=== PATIENT | female | born 1945 | race African-American/Black ===

== ENCOUNTER 2017-11-29 19:25 | Emergency (ER) | END 2017-11-30 03:07 | disposition home or self-care (01) ==

== ENCOUNTER 2018-01-08 23:02 | Emergency (ER) | END 2018-01-09 08:59 | disposition home or self-care (01) ==

== ENCOUNTER 2019-01-24 22:51 | Inpatient (IN) | payer OTHER ==
[~2019-01-24] VITALS: Ht 317.5 cm; Wt 63.8 kg
[~2019-01-24 22:51] MED LIST: ASPI-817 PO; DOCU-144 PO; HYDR-4011 PO; NAPR-688 PO; NAPR-985 PO; ONDA4TAB11 PO; ONDA4TAB8 PO; POLY17PO6 PO; PYRI250T7 PO; VITAMIN B12 SQ
--- NOTE | 2019-01-24 23:29 | ERD ---
ER Documentation Chief Complaint Chief Complaint fainted HPI The patient is a 73-year-old female, presenting to the ER because she felt dizzy and fainted today around 3 PM, fell on the curb side and landed on her right side of the abdomen. She denies any head injury, it was a witnessed by her caregiver, denies facial pain, neck pain, chest pain, dyspnea, abdominal pain, vomiting, dizzy, diarrhea, denies tongue bite, fecal/urinary incontinence. She smokes and drinks socially Past medical history: History of colon cancer Past surgical History: Colostomy, partial colectomy, IVC ROS All systems reviewed and are negative except as per history of present illness. Medications Home Meds Reported Medications [Vitamin B12] No Conflict Check, SQ Q30D 11/29/17 Pyridoxine Hcl* (Vitamin B-6*) Unknown Strength Tablet, 1 TAB PO DAILY, TAB 11/29/17 Aspirin* (Aspirin* EC) 81 Mg Tablet.dr, 81 MG PO NEEDED, TAB 11/29/17 Discontinued Scripts Ondansetron Hcl* (Zofran*) 4 Mg Tablet, 4 MG PO Q8H PRN for NAUSEA AND/OR VOMITING, #30 TAB Prov:CARLA OLIVEIRA MD 01/09/18 Naproxen* (Naprosyn*) 500 Mg Tablet, 500 MG PO BID PRN for PAIN AND/OR INFLAMMATION, #30 TAB Prov:CARLA OLIVEIRA MD 01/09/18 Docusate Sodium* (Colace*) 100 Mg Capsule, 100 MG PO BID, #30 CAP Prov:CARLA OLIVEIRA MD 01/09/18 Polyethylene Glycol* (Miralax*) 17 Gm Powd.pack, 17 GM PO DAILY, #7 Prov:CARLA OLIVEIRA MD 01/09/18 Ondansetron (Zofran Odt) 4 Mg Tab.rapdis, 4 MG PO Q6, #10 Prov:HELEN MONSON DO 11/30/17 Naproxen* (Naproxen*) 500 Mg Tablet, 500 MG PO BID PRN for PAIN, #20 TAB Prov:HELEN MONSON DO 11/30/17 Hydrocodone/Acetaminophen ([place] 5-325 Tablet) 1 Each Tablet, 1 EACH PO Q6 for PAIN, #14 TAB Prov:HELEN MONSON DO 11/30/17 Allergies Allergies: Coded Allergies: shellfish derived (Unverified Allergy, Severe, ANAPHLAXIS, 01/25/19) CAN'T HAVE GASTROGRAFIN FOR XRAYS OR SCANS Iodinated Contrast- Oral and IV Dye (Unverified Allergy, Unknown, 01/25/19) morphine (Unverified Allergy, Unknown, 01/25/19) PMhx/Soc History of Surgery: Yes (colostomy, vasculary stents, Implanted port, Mesh in the stomach.) Anesthesia Reaction: No Hx Neurological Disorder: No Hx Respiratory Disorders: No Hx Cardiac Disorders: No Hx Psychiatric Problems: No Hx Miscellaneous Medical Probl: Yes (Clotting (vascular stents placed)) Hx Alcohol Use: Yes (Socially) Hx Substance Use: No Hx Tobacco Use: Yes Physical Exam Vitals Vital Signs Date Temp Pulse Resp B/P (MAP) Pulse Ox O2 O2 Flow FiO2 Time Delivery Rate 01/25/19 70 15 110/72 100 Room Air 02:50 (85) 01/25/19 97.3 70 18 125/80 100 Room Air 00:50 (95) 01/24/19 97.3 83 16 121/59 100 23:00 (79) Physical Exam Const: No acute distress. Head: Atraumatic. Eyes: Normal Conjunctiva. ENT: Normal External Ears, Nose and Mouth. Neck: Full range of motion. No meningismus. Resp: Clear to auscultation bilaterally. Cardio: Regular rate and rhythm. Abd: Soft, non distended, normal bowel sounds, non tender. Skin: No petechiae or rashes. Back: No midline or flank tenderness. Ext: No cyanosis, or edema. Neur: Awake and alert. No focal deficit Psych: Normal Mood and Affect. Result Diagram: 01/27/19 0607 01/27/19 0608 Results 24 hrs Laboratory Tests Test 01/25/19 00:25 01/25/19 00:50 White Blood Count 7.2 10^3/ul Red Blood Count 3.66 10^6/ul Hemoglobin 11.3 g/dl Hematocrit 36.4 % Mean Corpuscular Volume 99.5 fl Mean Corpuscular Hemoglobin 30.9 pg Mean Corpuscular Hemoglobin Concent 31.0 g/dl Red Cell Distribution Width 11.8 % Platelet Count 277 10^3/UL Mean Platelet Volume 9.1 fl Immature Granulocytes % 0.100 % Neutrophils % 45.0 % Lymphocytes % 44.3 % Monocytes % 9.0 % Eosinophils % 1.2 % Basophils % 0.4 % Nucleated Red Blood Cells % 0.0 /100WBC Immature Granulocytes # 0.010 10^3/ul Neutrophils # 3.3 10^3/ul Lymphocytes # 3.2 10^3/ul Monocytes # 0.7 10^3/ul Eosinophils # 0.1 10^3/ul Basophils # 0.0 10^3/ul Nucleated Red Blood Cells # 0.0 10^3/ul Sodium Level 140 mmol/L Potassium Level 4.1 mmol/L Chloride Level 102 mmol/L Carbon Dioxide Level 29 mmol/L Anion Gap 9 Blood Urea Nitrogen 12 mg/dl Creatinine 0.88 mg/dl Est Glomerular Filtrat Rate mL/min mL/min Glucose Level 89 mg/dl Calcium Level 9.6 mg/dl Troponin I < 0.012 ng/ml Bedside Glucose 84 mg/dL Procedures/MDM EKG: Read by emergency physician Rate/Rhythm: Normal Sinus Rhythm 74 beats/min QRS, ST, T-waves: No ST elevation, no T inversion, KAROILNA Impression: Abnormal EKG [place] [address] Radiology Main Line: [phone] DIAGNOSTIC IMAGING REPORT Patient: GRACY FERREIRA : 1945 Age: 73 Sex: F MR #: [id number] DOS: 01/25/19 0006 Ordering MD: HOLLY ROWLAND MD Location: E/R Room/Bed: PROCEDURE: CT BRAIN WITHOUT CONTRAST CLINICAL INDICATION: 73-year-old female with syncope. TECHNIQUE: The study was performed utilizing [employer] VCT 64-slice CT scanner. Direct axial sections were obtained from the foramen magnum to the vertex without the use of intravenous contrast material. Sagittal and coronal reformations were obtained. One or more of the following dose reduction t echniques were utilized: automated exposure control, adjustment of the mA and/or kV according to patient's size or use of iterative reconstruction technique. DICOM images are available. The images were viewed on a PACS workstation. CTD/vol = 39.64 mGy; Total Exam DLP = 634.23 mGy.cm. COMPARISON: None. FINDINGS: There is mild degree of diffuse cortical and central atrophy with compensatory ventricular enlargement. There is no evidence for mass effect or midline shift. There are periventricular areas of decreased density consistent with microangiopathic ischemic changes. There is no evidence for acute intra or extra-axial blood. The bony calvarium is intact. The partially visualized paranasal sinuses and mastoid air cells are without significant abnormal soft tissue. IMPRESSION: 1. Mild diffuse atrophy. 2. Microangiopathic ischemic changes. .Garth Ford MD, MD Date Time Electronically viewed and signed by .Garth Ford MD, MD on 01/25/2019 02:30 .M/ CC: HOLLY ROWLAND MD [id number] [place] [address] Radiology Main Line: [phone] DIAGNOSTIC IMAGING REPORT Patient: GRACY FERREIRA : 1945 Age: 73 Sex: F MR #: [id number] DOS: 01/25/19 0006 Ordering MD: HOLLY ROWLAND MD Location: E/R Room/Bed: PROCEDURE: CT Cervical Spine. CLINICAL INDICATION: Fall, pain. TECHNIQUE: A CT of the cervical spine was performed on a [employer] CT scanner utilizing thin section axial images from the skull base through the thoracic inlet. Sagittal and coronal reformatted images were made. The CTDIvol is 22.28 mGy and the DLP is 569.37 mGycm. One or more of the following dose reduction techniques were used: automated exposure control, adjustment of the mA and/or kV according to patient size, or use of iterative reconstruction technique. DICOM images are available. COMPARISON: None. FINDINGS: There is reversal of the cervical lordosis. The craniocervical junction is normal. The odontoid is intact. The atlantoaxial articulation is normal. No vertebral body subluxation is seen. No acute fracture is identified. The poste rior elements are normally aligned. The surrounding soft tissues are normal in appearance. There is diffuse degenerative disc disease in the cervical spine with severe disc height loss and endplate degenerative changes at C3-4, C4-5, C5-6, C6-7 and C7-T1. C3-4, C4-5, C6-7 osteophyte bulges and severe central canal stenosis. C5- 6 left paracentral disc protrusion and severe canal stenosis. Uncovertebral hypertrophy and moderate to severe bilateral foraminal narrowing at C3-4, C4-5, C5-6, C6-7 and C7-T1. IMPRESSION: No evidence of fracture. Reversal of the cervical lordosis. Multilevel severe degenerative disc disease. See above details. [facility] Physician Minnie Date Time Electronically viewed and signed by Jared Salomon Physician on 01/25/2019 03:14 CS/ CC: HOLLY ROWLAND MD [id number] [place] [address] Radiology Main Line: [phone] DIAGNOSTIC IMAGING REPORT Patient: GRACY FERREIRA : 1945 Age: 73 Sex: F MR #: [id number] DOS: 01/25/19 0006 Ordering MD: HOLLY ROWLAND MD Location: E/R Room/Bed: PROCEDURE: CHEST - 1 VIEW CLINICAL INDICATION: 73-year-old female with syncope. TECHNIQUE: A single frontal AP portable view of the chest was performed. The images were reviewed on a PACS workstation. COMPARISON: None. FINDINGS: There is a right-sided PICC line with the tip in the mid superior vena cava. The cardiomediastinal silhouette is within normal limits. The thoracic aortic arch is calcified. There is minimal eventration of the right hemidiaphragm. There is no evidence for an infiltrate. There is no evidence for congestive heart failure. There is no evidence for pneumothorax. The osseous structures are intact. IMPRESSION: 1. Right-sided PICC line with tip in the mid superior vena cava. 2. No evidence for active cardiopulmonary disease. 3. Calcified thoracic aortic arch. .Garth Ford MD, Date Time Electronically viewed and signed by .Garth Ford MD, MD on 01/25/2019 02:31 .M/ CC: HOLLY ROWLAND MD [id number] MEDICAL MAKING DECISION: The patient is a 73-year-old female, presenting with acute syncope of unclear etiology The differential diagnoses considered include but are not limited to arrhythmogenic right ventricular dysplasia, Brugada syndrome, left ventricular hypertrophy, pulmonary embolism, QT abnormality, [id number]. Departure Diagnosis: Primary Impression: Syncope Condition: Stable Comments I discussed the findings with the patient. I discussed the patient with Dr Lim at 4am , who was made aware of the lab, the treatment, the patient condition. The patient is admitted to tel Disclaimer: Inadvertent spelling and grammatical errors are likely due to EHR/dictation software use and do not reflect on the overall quality of patient care. Also, please note that the electronic time recorded on this note does not necessarily reflect the actual time of the patient encounter. HOLLY ROWLAND MD Jan 24, 2019 23:29
[2019-01-25] VITALS (12 sets, daily range): BP systolic 112–140; BP diastolic 53–72; PULSE 55–87; RESP 18–20; Ht 317.5 cm; Wt 63.8 kg
[2019-01-25] MEDS ORDERED: DOCUSATE SODIUM 100 MG CAP PO PRN (04:30)
[2019-01-25] MEDS ORDERED: ACETAMINOPHEN 325 MG TAB PO PRN (04:30)
[2019-01-25] MEDS ORDERED: BISACODYL (EC) 5 MG TAB PO PRN (04:30)
[2019-01-25] MEDS ORDERED: NACL 0.9% 3 ML SYG IV SCH (04:30)
[2019-01-25] MEDS ORDERED: ONDANSETRON 4 MG INJ IV PRN (04:30)
--- NOTE | 2019-01-25 08:15 | HP ---
Date/Time of Note Date/Time of Note DATE: 01/25/19 TIME: 08:15 Assessment/Plan VTE Prophylaxis SCD applied (from Nsg): Yes Pharmacological prophylaxis: NA/contraindicated Pharm contraindication: low risk/ambulating Lines/Catheters IV Catheter Type (from Nrsg): PICC Line Central line still needed: Yes (Chronic he has at the color that I like to he denies she denies being on level) Assessment/Plan Hospital Course This is a 73-year-old female being admitted to the telemetry floor for observation for: #1 syncope: Cardiogenic versus neurocardiogenic versus orthostatic: CT brain: negative. Check Echocardiogram, orthostatic vital signs, carotid Dopplers. Will hydrate the patient with normal saline. Monitor patient on telemetry. PT eval. #2 normocytic anemia: No current signs of bleeding. Likely secondary to chronic disease, continue to monitor. #3 history of colon CA: Currently has colostomy tube, colostomy care. Follow-up with outpatient adjustment supervisor. #4 DVT GI prophylaxis: SCDs, no GI prophylaxis indicated Further treatment strategy will be implemented as per the clinical course Result Diagram: 01/25/19 0025 01/25/19 0025 Results 24hrs Laboratory Tests Test 01/25/19 00:25 01/25/19 00:50 White Blood Count 7.2 Red Blood Count 3.66 L Hemoglobin 11.3 L Hematocrit 36.4 L Mean Corpuscular Volume 99.5 Mean Corpuscular Hemoglobin 30.9 Mean Corpuscular Hemoglobin Concent 31.0 L Red Cell Distribution Width 11.8 Platelet Count 277 Mean Platelet Volume 9.1 Immature Granulocytes % 0.100 Neutrophils % 45.0 Lymphocytes % 44.3 Monocytes % 9.0 Eosinophils % 1.2 Basophils % 0.4 Nucleated Red Blood Cells % 0.0 Immature Granulocytes # 0.010 Neutrophils # 3.3 Lymphocytes # 3.2 H Monocytes # 0.7 Eosinophils # 0.1 Basophils # 0.0 Nucleated Red Blood Cells # 0.0 Sodium Level 140 Potassium Level 4.1 Chloride Level 102 Carbon Dioxide Level 29 Anion Gap 9 Blood Urea Nitrogen 12 Creatinine 0.88 Est Glomerular Filtrat Rate mL/min Glucose Level 89 Calcium Level 9.6 Troponin I < 0.012 Bedside Glucose 84 HPI/ROS Admit Date/Time Admit Date/Time Jan 25, 2019 at 03:58 Hx of Present Illness Syncope Chief complaint: This is a 73-year-old female who presented to the emergency department status post fall. Patient presented with her caregiver. Patient and her caregiver were walking on the street yesterday when the patient reported that she all of a sudden felt dizzy and lightheaded and then blacked out. She is unsure whether she had her head on the pavement or not. She denied any chest pain or shortness of breath prior to or after the episode. Her caregiver does report that she has syncopized in the past but has not as of recently. She does have a history of colon cancer and has a colostomy tube. Patient does report that she may have been drinking enough water recently as well and she did report that it was hot yesterday when she was walking. Allergies: Contrast, morphine, shellfish Medications: Aspirin ROS Const: As per HPI, weight gain or weight loss, fatigue, or diaphoresis Eyes : No pain discharge or redness or change in visual acuity ENT: No pain, sore throat, congestion, congestion, dysphagia or discharge Respiratory: No shortness of breath, cough, sputum, wheezing, or pleuritic pain Cardiovascular: No chest pain, palpitation, PND, or edema GI : no change in appetite, abdominal pain, nausea, vomiting, diarrhea, constipation, or change in the color his stool Genitourinary: No dysuria, hematuria, flank pain , discharge or CVA tenderness Musculoskeletal: No joint pain, back pain, neck pain, restricted range of motion in neck or joints Skin: No rash, bruising or hives Neuro: As per HPI Endocrine: No polyuria, polydipsia, temperature intolerance Psych: No hallucination, depression, anxiety or suicidal ideation PMH/Family/Social Past Medical History Colon cancer status post colostomy, history of DVTs Medications Current Medications IV Flush (NS 3 ml) 3 ml PER PROTOCOL IV ; Start 01/25/19 at 04:30 Ondansetron HCl (Zofran Inj) 4 mg Q6H PRN IV NAUSEA/VOMITING; Start 01/25/19 at 04:30 Acetaminophen (Tylenol Tab) 650 mg Q6H PRN PO .PAIN 1-3 OR TEMP; Start 01/25/19 at 04:30 Docusate Sodium (Colace) 100 mg Q12H PRN PO .CONSTIPATION; Start 01/25/19 at 04:30 Bisacodyl (Dulcolax) 5 mg DAILY PRN PO .CONSTIPATION; Start 01/25/19 at 04:30 Coded Allergies: shellfish derived (Unverified Allergy, Severe, ANAPHLAXIS, 01/25/19) CAN'T HAVE GASTROGRAFIN FOR XRAYS OR SCANS Iodinated Contrast- Oral and IV Dye (Unverified Allergy, Unknown, 01/25/19) morphine (Unverified Allergy, Unknown, 01/25/19) Past Surgical History Right-sided colostomy, implanted port, vascular stents? Family History Significant Family History: no pertinent family hx Social History Alcohol Use: none Smoking Status: Current every day smoker Drug Use: none Exam/Review of Systems Vital Signs Vitals Vital Signs Date Temp Pulse Resp B/P (MAP) Pulse Ox O2 O2 Flow FiO2 Time Delivery Rate 01/25/19 55 08:03 01/25/19 97.7 20 123/63 100 07:22 (83) 01/25/19 Room Air 05:47 Intake and Output 01/24/19 01/24/19 01/25/19 1515:00 23:00 07:00 IntakeIntake Total 220 ml BalanceBalance 220 ml Exam Exam General: Patient is a pleasant female currently lying in bed in no acute distress HEENT: Atraumatic, normocephalic. The pupils are equal, round and reactive. Extraocular motor are intact, mucous membranes slightly dry Neck: Supple with full range of motion. No rigidity or meningismus Chest: Nontender Lungs: Clear to auscultation bilaterally no crackles rales or wheezing Heart: Normal S1-S2, Regular rhythm and rate. No murmur, S3, or S4 Abdomen: Soft , nontender, nondistended , bowel sounds are present. No guarding no rebound tenderness , No masses or organomegaly. No costovertebral temporal angle mass Extremities: Normal to inspection, no edema no cyanosis Neurologic: Normal mental status, speech normal, cranial nerves II through XII are intact, motor and sensory are intact, patient is able to answer questions appropriately and she is very pleasant. Additional Comments PROCEDURE: CT BRAIN WITHOUT CONTRAST CLINICAL INDICATION: 73-year-old female with syncope. TECHNIQUE: The study was performed utilizing [employer] 64-slice CT scanner. Direct axial sections were obtained from the foramen magnum to the vertex without the use of intravenous contrast material. Sagittal and coronal reformations were obtained. One or more of the following dose reduction techniques were utilized: automated exposure control, adjustment of the mA and/or kV according to patient's size or use of iterative reconstruction technique. DICOM images are available. The images were viewed on a PACS workstation. CTD/vol = 39.64 mGy; Total Exam DLP = 634.23 mGy.cm. COMPARISON: None. FINDINGS: There is mild degree of diffuse cortical and central atrophy with compensatory ventricular enlargement. There is no evidence for mass effect or midline shift. There are periventricular areas of decreased density consistent with microangiopathic ischemic changes. There is no evidence for acute intra or extra-axial blood. The bony calvarium is intact. The partially visualized paranasal sinuses and mastoid air cells are without significant abnormal soft tissue. IMPRESSION: 1. Mild diffuse atrophy. 2. Microangiopathic ischemic changes. .Garth Ford MD, MD Date Time Electronically viewed and signed by .Garth Ford MD, MD on 01/25/2019 02:30 .M/ CC: HOLLY ROWLAND MD [id number] PROCEDURE: CT Cervical Spine. CLINICAL INDICATION: Fall, pain. TECHNIQUE: A CT of the cervical spine was performed on a [employer] CT scanner utilizing thin section axial images from the skull base through the thoracic inlet. Sagittal and coronal reformatted images were made. The CTDIvol is 22.28 mGy and the DLP is 569.37 mGycm. One or more of the following dose red uction techniques were used: automated exposure control, adjustment of the mA and/or kV according to patient size, or use of iterative reconstruction technique. DICOM images are available. COMPARISON: None. FINDINGS: There is reversal of the cervical lordosis. The craniocervical junction is normal. The odontoid is intact. The atlantoaxial articulation is normal. No vertebral body subluxation is seen. No acute fracture is identified. The posterior elements are normally aligned. The surrounding soft tissues are normal in appearance. There is diffuse degenerative disc disease in the cervical spine with severe disc height loss and endplate degenerative changes at C3-4, C4-5, C5-6, C6-7 and C7-T1. C3-4, C4-5, C6-7 osteophyte bulges and severe central canal stenosis. C5- 6 left paracentral disc protrusion and severe canal stenosis. Uncovertebral hypertrophy and moderate to severe bilateral foraminal narrowing at C3-4, C4-5, C5-6, C6-7 and C7-T1. IMPRESSION: No evidence of fracture. Reversal of the cervical lordosis. Multilevel severe degenerative disc disease. See above details. [facility] Physician Minnie Date Time Electronically viewed and signed by Jared Salomon Physician on 01/25/2019 03:14 CS/ CC: HOLLY ROWLAND MD [id number] PROCEDURE: CHEST - 1 VIEW CLINICAL INDICATION: 73-year-old female with syncope. TECHNIQUE: A single frontal AP portable view of the chest was performed. The images were reviewed on a PACS workstation. COMPARISON: None. FINDINGS: There is a right-sided PICC line with the tip in the mid superior vena cava. The cardiomediastinal silhouette is within normal limits. The thoracic aortic arch is calcified. There is minimal eventration of the right hemidiaphragm. There is no evidence for an infiltrate. There is no evidence for congestive heart failure. There is no evidence for pneumothorax. The osseous structures are intact. IMPRESSION: 1. Right-sided PICC line with tip in the mid superior vena cava. 2. No evidence for active cardiopulmonary disease. 3. Calcified thoracic aortic arch. .Garth Ford MD, Date Time Electronically viewed and signed by .Garth Ford MD, on 01/25/2019 02:31 .M/ CC: HOLLY ROWLAND MD [id number] CHANO TENORIO Jan 25, 2019 08:15
--- NOTE | 2019-01-25 13:52 | PN ---
Date/Time of Note Date/Time of Note DATE: 01/25/19 TIME: 13:47 Assessment/Plan VTE Prophylaxis Risk score (from Ns)>0 risk: 3 SCD applied (from Ns): Yes Pharmacological prophylaxis: NA/contraindicated Pharm contraindication: low risk/ambulating Lines/Catheters IV Catheter Type (from [facility]): PICC Line Central line still needed: Yes Assessment/Plan Assessment/Plan 1. Syncopal episode - patient admits to not keep well hydrated in the heat yesterday - CT head negative for acute abnormalities - Carotid duplex reveals "50-69% stenosis in the right ICA. and 65% right common carotid artery." Patient is considered asymptomatic and will recommend aggressive medical therapy with statin and plavix. Will need to follow up with Vascular surgeon as outpatient - ECHO still pending 2. Normocytic anemia, mild - stable - no need for transfusions at this time 3. History of colon CA - Colostomy tube in place - Follow-up with outpatient oncologist 4. Disposition - Awaiting ECHO results. If remains asymptomatic with no further syncopal episode, will d/c home tomorrow - Awaiting PT evaluation Result Diagram: 01/25/19 0025 01/25/19 0025 Results 24hrs Laboratory Tests Test 01/25/19 00:25 01/25/19 00:50 White Blood Count 7.2 Red Blood Count 3.66 L Hemoglobin 11.3 L Hematocrit 36.4 L Mean Corpuscular Volume 99.5 Mean Corpuscular Hemoglobin 30.9 Mean Corpuscular Hemoglobin Concent 31.0 L Red Cell Distribution Width 11.8 Platelet Count 277 Mean Platelet Volume 9.1 Immature Granulocytes % 0.100 Neutrophils % 45.0 Lymphocytes % 44.3 Monocytes % 9.0 Eosinophils % 1.2 Basophils % 0.4 Nucleated Red Blood Cells % 0.0 Immature Granulocytes # 0.010 Neutrophils # 3.3 Lymphocytes # 3.2 H Monocytes # 0.7 Eosinophils # 0.1 Basophils # 0.0 Nucleated Red Blood Cells # 0.0 Sodium Level 140 Potassium Level 4.1 Chloride Level 102 Carbon Dioxide Level 29 Anion Gap 9 Blood Urea Nitrogen 12 Creatinine 0.88 Est Glomerular Filtrat Rate mL/min Glucose Level 89 Calcium Level 9.6 Troponin I < 0.012 Bedside Glucose 84 Subjective 24 Hr Interval Summary Free Text/Dictation Patient denies any dizziness and chest pain. no acute overnight events. Admits to not staying well hydrated yesterday and was a hot day in the 90sF Exam/Review of Systems Exam Vitals Vital Signs Date Temp Pulse Resp B/P (MAP) Pulse Ox O2 O2 Flow FiO2 Time Delivery Rate 01/25/19 63 12:03 01/25/19 98.8 20 125/58 96 11:32 (80) 01/25/19 Room Air 05:47 Intake and Output 01/24/19 01/24/19 01/25/19 1515:00 23:00 07:00 IntakeIntake Total 220 ml BalanceBalance 220 ml Exam General: Patient is a pleasant female currently lying in bed in no acute distress Neck: Supple with full range of motion. no murmurs appreciated Chest: Nontender Lungs: Clear to auscultation bilaterally no crackles rales or wheezing Heart: Normal S1-S2, Regular rhythm and rate. No murmur, S3, or S4 Abdomen: Soft , nontender, nondistended , bowel sounds are present. No guarding no rebound tenderness Extremities: Normal to inspection, no edema no cyanosis Neurologic: Normal mental status, speech normal, cranial nerves II through XII are intact, motor and sensory are intact, no focal deficits appreciated Results Results 24hrs Laboratory Tests Test 01/25/19 00:25 01/25/19 00:50 White Blood Count 7.2 Red Blood Count 3.66 L Hemoglobin 11.3 L Hematocrit 36.4 L Mean Corpuscular Volume 99.5 Mean Corpuscular Hemoglobin 30.9 Mean Corpuscular Hemoglobin Concent 31.0 L Red Cell Distribution Width 11.8 Platelet Count 277 Mean Platelet Volume 9.1 Immature Granulocytes % 0.100 Neutrophils % 45.0 Lymphocytes % 44.3 Monocytes % 9.0 Eosinophils % 1.2 Basophils % 0.4 Nucleated Red Blood Cells % 0.0 Immature Granulocytes # 0.010 Neutrophils # 3.3 Lymphocytes # 3.2 H Monocytes # 0.7 Eosinophils # 0.1 Basophils # 0.0 Nucleated Red Blood Cells # 0.0 Sodium Level 140 Potassium Level 4.1 Chloride Level 102 Carbon Dioxide Level 29 Anion Gap 9 Blood Urea Nitrogen 12 Creatinine 0.88 Est Glomerular Filtrat Rate mL/min Glucose Level 89 Calcium Level 9.6 Troponin I < 0.012 Bedside Glucose 84 Medications Medication Current Medications IV Flush (NS 3 ml) 3 ml PER PROTOCOL IV ; Start 4/19/19 at 04:30 Ondansetron HCl (Zofran Inj) 4 mg Q6H PRN IV NAUSEA/VOMITING; Start 01/25/19 at 04:30 Acetaminophen (Tylenol Tab) 650 mg Q6H PRN PO .PAIN 1-3 OR TEMP; Start 01/25/19 at 04:30 Docusate Sodium (Colace) 100 mg Q12H PRN PO .CONSTIPATION; Start 01/25/19 at 04:30 Bisacodyl (Dulcolax) 5 mg DAILY PRN PO .CONSTIPATION; Start 01/25/19 at 04:30 Atorvastatin Calcium (Lipitor) 80 mg HS PO ; Start 01/25/19 at 21:00 Clopidogrel Bisulfate (plaVIX) 75 mg DAILY PO ; Start 01/25/19 at 12:30 EARNEST PAYAN MD Jan 25, 2019 13:52
[2019-01-25] MEDS: CLOPIDOGREL 75 MG TAB PO SCH (14:32)
[2019-01-25] MEDS: ATORVASTATIN 80 MG TAB PO SCH (20:25)
[2019-01-26] VITALS (11 sets, daily range): BP systolic 101–150; BP diastolic 50–72; PULSE 59–80; RESP 17–19
[2019-01-26] MEDS: CLOPIDOGREL 75 MG TAB PO SCH (09:38)
--- NOTE | 2019-01-26 12:32 | PN ---
Date/Time of Note Date/Time of Note DATE: 01/26/19 TIME: 12:27 Assessment/Plan VTE Prophylaxis Risk score (from Nsg)>0 risk: 3 SCD applied (from Nsg): Yes Pharmacological prophylaxis: LMWH Lines/Catheters IV Catheter Type (from Nrsg): Saline Lock Assessment/Plan Assessment/Plan 1. Syncopal episode- resolved - patient admits to not keep well hydrated in the heat yesterday - CT head negative for acute abnormalities - Carotid duplex reveals "50-69% stenosis in the right ICA. and 65% right common carotid artery." Patient is considered asymptomatic and will recommend aggressive medical therapy with statin and plavix. Will need to follow up with Vascular surgeon as outpatient which was discussed with patient - ECHO still pending 2. Normocytic anemia, mild - stable - no need for transfusions at this time 3. History of colon CA - Colostomy tube in place - Follow-up with outpatient oncologist 4. Neck pain with radiation to L arm - will try heating pad for relief and if no improvement, muscle relaxant 5. Disposition - Awaiting ECHO report to rule out any cardiac structural abnormalities - heating pad to neck for relief of pain and neuropathy in LUE Result Diagram: 01/25/19 0025 01/25/19 0025 Subjective 24 Hr Interval Summary Free Text/Dictation Patient is complaining of neck discomfort and work up with severe pain in left upper extremity that felt pins and needles. No acute overnight events. Exam/Review of Systems Exam Vitals Vital Signs Date Temp Pulse Resp B/P (MAP) Pulse Ox O2 O2 Flow FiO2 Time Delivery Rate 01/26/19 78 12:04 01/26/19 98.1 17 113/57 93 11:26 (75) 01/25/19 Room Air 05:47 Intake and Output 01/25/19 01/25/19 01/26/19 1515:00 23:00 07:00 IntakeIntake Total 750 ml 480 ml OutputOutput Total 900 ml BalanceBalance -150 ml 480 ml Exam General: Patient is a pleasant female currently lying in bed in no acute distress Neck: Supple Chest: Nontender Lungs: Clear to auscultation bilaterally no crackles rales or wheezing Heart: Normal S1-S2, Regular rhythm and rate. No murmur, S3, or S4 Abdomen: Soft , nontender, nondistended , bowel sounds are present. No guarding no rebound tenderness Extremities: Normal to inspection, no edema no cyanosis. moving all extremities Neuro: strength intact. no focal deficits appreciated Medications Medication Current Medications IV Flush (NS 3 ml) 3 ml PER PROTOCOL IV ; Start 01/25/19 at 04:30 Ondansetron HCl (Zofran Inj) 4 mg Q6H PRN IV NAUSEA/VOMITING; Start 01/25/19 at 04:30 Acetaminophen (Tylenol Tab) 650 mg Q6H PRN PO .PAIN 1-3 OR TEMP; Start 01/25/19 at 04:30 Docusate Sodium (Colace) 100 mg Q12H PRN PO .CONSTIPATION; Start 01/25/19 at 04:30 Bisacodyl (Dulcolax) 5 mg DAILY PRN PO .CONSTIPATION; Start 01/25/19 at 04:30 Atorvastatin Calcium (Lipitor) 80 mg HS PO Last administered on 01/25/19at 20:25; Admin Dose 80 MG; Start 01/25/19 at 21:00 Clopidogrel Bisulfate (plaVIX) 75 mg DAILY PO Last administered on 01/26/19at 09:38; Admin Dose 75 MG; Start 01/25/19 at 12:30 EARNEST PAYAN MD Jan 26, 2019 12:32
[2019-01-26] MEDS: ATORVASTATIN 80 MG TAB PO SCH (20:40)
[2019-01-27] VITALS (11 sets, daily range): BP systolic 102–138; BP diastolic 52–72; PULSE 55–77; RESP 16–18
[2019-01-27] MEDS: CLOPIDOGREL 75 MG TAB PO SCH (09:16)
--- NOTE | 2019-01-27 09:41 | PN ---
Date/Time of Note Date/Time of Note DATE: 01/27/19 TIME: 09:39 Assessment/Plan VTE Prophylaxis Risk score (from Ns)>0 risk: 3 SCD applied (from [facility] [place] No SCD contraindicated: low risk/ambulating Pharmacological prophylaxis: NA/contraindicated Pharm contraindication: low risk/ambulating Lines/Catheters IV [facility] (from [facility] Saline Lock Assessment/Plan Assessment/Plan 1. Syncopal episode- resolved - CT head negative for acute abnormalities - Carotid duplex reveals "50-69% stenosis in the right ICA. and 65% right common carotid artery." Patient is considered asymptomatic and will recommend aggressive medical therapy with statin and plavix. Will need to follow up with Vascular surgeon as outpatient which was discussed with patient 2. Normocytic anemia, mild - stable - no need for transfusions at this time 3. History of colon CA - Colostomy tube in place - Follow-up with outpatient oncologist 4. Neck pain with radiation to L arm - will try heating pad and baclofen PRN 5. Disposition - Medically stable for discharge home Result Diagram: 01/27/19 0607 01/27/19 0608 Results 24hrs Laboratory Tests Test 01/26/19 14:05 01/27/19 06:07 01/27/19 06:08 Sodium Level 139 142 Potassium Level 4.2 4.6 Chloride Level 105 108 Carbon Dioxide Level 26 26 Anion Gap 8 8 Blood Urea Nitrogen 13 14 Creatinine 0.87 0.89 Glucose Level 112 93 Calcium Level 10.0 9.9 Phosphorus Level 3.8 3.8 Magnesium Level 2.0 2.1 Albumin 4.0 4.1 White Blood Count 5.5 # Red Blood Count 3.98 L Hemoglobin 12.1 Hematocrit 39.3 Mean Corpuscular Volume 98.7 Mean Corpuscular Hemoglobin 30.4 Mean Corpuscular Hemoglobin Concent 30.8 L Red Cell Distribution Width 11.9 Platelet Count 276 Mean Platelet Volume 9.5 Immature Granulocytes % 0.400 Neutrophils % 37.4 L Lymphocytes % 51.7 H Monocytes % 8.9 Eosinophils % 1.1 Basophils % 0.5 Nucleated Red Blood Cells % 0.0 Immature Granulocytes # 0.020 Neutrophils # 2.1 Lymphocytes # 2.9 Monocytes # 0.5 Eosinophils # 0.1 Basophils # 0.0 Nucleated Red Blood Cells # 0.0 Subjective 24 Hr Interval Summary Free Text/Dictation Patient still with numbness of LUE but never had heating pad placed on neck. Discussed trying muscle relaxant and if effective, will d/c home Exam/Review of Systems Exam Vitals Vital Signs Date Temp Pulse Resp B/P (MAP) Pulse Ox O2 O2 Flow FiO2 Time Delivery Rate 01/27/19 60 08:00 01/27/19 98.5 18 138/62 99 07:32 (87) 01/25/19 Room Air 05:47 Intake and Output 01/26/19 01/26/19 01/27/19 1515:00 23:00 07:00 IntakeIntake Total 750 ml 800 ml BalanceBalance 750 ml 800 ml Exam General: Patient is a pleasant female currently lying in bed in no acute distress Neck: Supple Lungs: Clear to auscultation bilaterally no crackles rales or wheezing Heart: Normal S1-S2, Regular rhythm and rate. No murmur, S3, or S4 Abdomen: Soft , nontender, nondistended , bowel sounds are present. No guarding no rebound tenderness Extremities: Normal to inspection, no edema no cyanosis. moving all extremities Neuro: strength intact. no focal deficits appreciated Results Results 24hrs Laboratory Tests Test 01/26/19 14:05 01/27/19 06:07 01/27/19 06:08 Sodium Level 139 142 Potassium Level 4.2 4.6 Chloride Level 105 108 Carbon Dioxide Level 26 26 Anion Gap 8 8 Blood Urea Nitrogen 13 14 Creatinine 0.87 0.89 Glucose Level 112 93 Calcium Level 10.0 9.9 Phosphorus Level 3.8 3.8 Magnesium Level 2.0 2.1 Albumin 4.0 4.1 White Blood Count 5.5 # Red Blood Count 3.98 L Hemoglobin 12.1 Hematocrit 39.3 Mean Corpuscular Volume 98.7 Mean Corpuscular Hemoglobin 30.4 Mean Corpuscular Hemoglobin Concent 30.8 L Red Cell Distribution Width 11.9 Platelet Count 276 Mean Platelet Volume 9.5 Immature Granulocytes % 0.400 Neutrophils % 37.4 L Lymphocytes % 51.7 H Monocytes % 8.9 Eosinophils % 1.1 Basophils % 0.5 Nucleated Red Blood Cells % 0.0 Immature Granulocytes # 0.020 Neutrophils # 2.1 Lymphocytes # 2.9 Monocytes # 0.5 Eosinophils # 0.1 Basophils # 0.0 Nucleated Red Blood Cells # 0.0 Medications Medication Current Medications IV Flush (NS 3 ml) 3 ml PER PROTOCOL IV ; Start 01/25/19 at 04:30 Ondansetron HCl (Zofran Inj) 4 mg Q6H PRN IV NAUSEA/VOMITING; Start 01/25/19 at 04:30 Acetaminophen (Tylenol Tab) 650 mg Q6H PRN PO .PAIN 1-3 OR TEMP; Start 01/25/19 at 04:30 Docusate Sodium (Colace) 100 mg Q12H PRN PO .CONSTIPATION; Start 01/25/19 at 04:30 Bisacodyl (Dulcolax) 5 mg DAILY PRN PO .CONSTIPATION; Start 01/25/19 at 04:30 Atorvastatin Calcium (Lipitor) 80 mg HS PO Last administered on 01/26/19at 20:40; Admin Dose 80 MG; Start 01/25/19 at 21:00 Clopidogrel Bisulfate (plaVIX) 75 mg DAILY PO Last administered on 01/27/19at 09:16; Admin Dose 75 MG; Start 01/25/19 at 12:30 Baclofen (Lioresal) 5 mg TID PO ; Start 01/27/19 at 13:00 EARNEST PAYAN MD Jan 27, 2019 09:41
[2019-01-27] MEDS ORDERED: BACL10TA PO (09:42)
--- NOTE | 2019-01-27 09:45 | PDOCDIS ---
Discharge Instructions DIAGNOSIS Discharge Diagnosis 1. Syncopal episode- resolved 2. Normocytic anemia, mild 3. History of colon CA 4. Neck pain with radiation to L arm 5. Right internal carotid artery and common carotid artery stenosis, 50-65% CONDITION [id number] Patient Condition: [id number] Stable HOME CARE INSTRUCTIONS: [id number] Diet Instructions: [id number] Low Fat /Cholesterol FOLLOW UP/APPOINTMENTS Follow-up Plan 1. Follow up with your primary care physician in 1-2 weeks 2. On ultrasound of your neck arteries, you were found to have some narrowing which can be treated for now with aggressive medical treatment including Plavix and Lipitor. It is important to cut out foods high in fat and cholesterol to prevent further plaque formation. I recommend you discuss referral to a vascular surgeon for continued monitoring and evaluation for need of surgical intervention 3. Continue with warm compresses on neck while healing 4. If experiencing any concerning symptoms, please go to your nearest emergency department EARNEST PAYAN MD Jan 27, 2019 09:45
[2019-01-27] MEDS ORDERED: BACLOFEN 10 MG TAB PO PRN (10:00)
[2019-01-27] MEDS ORDERED: BACLOFEN 10 MG TAB PO SCH (13:00)
[2019-01-27] MEDS: ATORVASTATIN 80 MG TAB PO SCH (20:53)
[2019-01-27] MEDS: BACLOFEN 10 MG TAB PO SCH (20:54)
[2019-01-28] VITALS (8 sets, daily range): BP systolic 115–155; BP diastolic 52–81; PULSE 62–85; RESP 18–19
[2019-01-28] MEDS: CLOPIDOGREL 75 MG TAB PO SCH (09:26)
[2019-01-28] MEDS: BACLOFEN 10 MG TAB PO SCH ×3 (09:26→20:02)
--- NOTE | 2019-01-28 13:21 | PN ---
Date/Time of Note Date/Time of Note DATE: 01/28/19 TIME: 13:16 Assessment/Plan VTE Prophylaxis Risk score (from [facility] [place] risk: 4 SCD applied (from [facility] [place] Yes Pharmacological prophylaxis: other Pharm contraindication: low risk/ambulating Lines/Catheters IV [facility] (from [facility]): Saline Lock Assessment/Plan Assessment/Plan 1. Syncope, likely orthostatic, order echo 2. Carotid stenosis up to 50-69% at right ICA and 65% at right common carotid artery, not surgical, continue an lipitor and aspirin, follow up with vascular surgery outpatient 3. Normocytic anemia, mild, follow up with PCP 4. History of colon CA, follow-up with outpatient oncologist 5. Follow up with licensed master social worker for discharge plan Result Diagram: 01/28/19 0857 01/28/19 0857 Results 24hrs Laboratory Tests Test 01/28/19 08:57 White Blood Count 4.5 L Red Blood Count 3.76 L Hemoglobin 11.6 L Hematocrit 37.5 Mean Corpuscular Volume 99.7 Mean Corpuscular Hemoglobin 30.9 Mean Corpuscular Hemoglobin Concent 30.9 L Red Cell Distribution Width 11.6 Platelet Count 269 Mean Platelet Volume 9.2 Immature Granulocytes % 0.400 Neutrophils % 48.7 Lymphocytes % 39.6 Monocytes % 10.0 Eosinophils % 0.9 Basophils % 0.4 Nucleated Red Blood Cells % 0.0 Immature Granulocytes # 0.020 Neutrophils # 2.2 Lymphocytes # 1.8 Monocytes # 0.5 Eosinophils # 0.0 Basophils # 0.0 Nucleated Red Blood Cells # 0.0 Sodium Level 140 Potassium Level 4.3 Chloride Level 107 Carbon Dioxide Level 28 Anion Gap 5 Blood Urea Nitrogen 14 Creatinine 0.80 Glucose Level 95 Calcium Level 10.0 Phosphorus Level 3.4 Magnesium Level 2.0 Albumin 3.9 Subjective 24 Hr Interval Summary Free Text/Dictation no pain, no dizziness Exam/Review of Systems Exam Vitals Vital Signs Date Temp Pulse Resp B/P (MAP) Pulse Ox O2 O2 Flow FiO2 Time Delivery Rate 01/28/19 98.0 62 18 127/66 98 Room Air 08:49 (86) Intake and Output 01/27/19 01/27/19 01/28/19 1515:00 23:00 07:00 IntakeIntake Total 850 ml 460 ml BalanceBalance 850 ml 460 ml Constitutional: alert, oriented, well developed Psych: no complaints, nl mood/affect Head: normocephalic, atraumatic Eyes: nl conjunctiva, EOMI, nl lids, PERRL ENMT: nl external ears & nose, nl lips & teeth, nl nasal mucosa & septum Neck: supple, non-tender Respiratory: clear to auscultation, normal air movement; No congested cough, No crackles/rales, No diminished breath sounds, No intercostal retraction, No labored breathing, No respirations, No tactile fremitus, No wheezing, No other Cardiovascular: regular rate and rhythm, nl pulses Gastrointestinal: soft, nl liver, spleen, non-tender Musculoskeletal: nl extremities to inspection Extremities: normal pulses; No calf tenderness, No cyanosis, No clubbing, No edema, No pitting pedal edema, No palpable cord, No tenderness, No other Neurological: ELEMENT[employer] TE[employer]ER II-XII intact, nl mental status, nl speech, nl strength Results Results 24hrs Laboratory Tests Test 01/28/19 08:57 White Blood Count 4.5 L Red Blood Count 3.76 L Hemoglobin 11.6 L Hematocrit 37.5 Mean Corpuscular Volume 99.7 Mean Corpuscular Hemoglobin 30.9 Mean Corpuscular Hemoglobin Concent 30.9 L Red Cell Distribution Width 11.6 Platelet Count 269 Mean Platelet Volume 9.2 Immature Granulocytes % 0.400 Neutrophils % 48.7 Lymphocytes % 39.6 Monocytes % 10.0 Eosinophils % 0.9 Basophils % 0.4 Nucleated Red Blood Cells % 0.0 Immature Granulocytes # 0.020 Neutrophils # 2.2 Lymphocytes # 1.8 Monocytes # 0.5 Eosinophils # 0.0 Basophils # 0.0 Nucleated Red Blood Cells # 0.0 Sodium Level 140 Potassium Level 4.3 Chloride Level 107 Carbon Dioxide Level 28 Anion Gap 5 Blood Urea Nitrogen 14 Creatinine 0.80 Glucose Level 95 Calcium Level 10.0 Phosphorus Level 3.4 Magnesium Level 2.0 Albumin 3.9 Medications Medication Current Medications IV Flush (NS 3 ml) 3 ml PER PROTOCOL IV ; Start 01/25/19 at 04:30 Ondansetron HCl (Zofran Inj) 4 mg Q6H PRN IV NAUSEA/VOMITING; Start 01/25/19 at 04:30 Acetaminophen (Tylenol Tab) 650 mg Q6H PRN PO .PAIN 1-3 OR TEMP Last administered on 01/28/19 10:09; Admin Dose 650 MG; Start 01/25/19 at 04:30 Docusate Sodium (Colace) 100 mg Q12H PRN PO .CONSTIPATION; Start 01/25/19 at 04:30 Bisacodyl (Dulcolax) 5 mg DAILY PRN PO .CONSTIPATION; Start 01/25/19 at 04:30 Atorvastatin Calcium (Lipitor) 80 mg HS PO Last administered on 01/27/19at 20:53; Admin Dose 80 MG; Start 01/25/19 at 21:00 Clopidogrel Bisulfate (plaVIX) 75 mg DAILY PO Last administered on 01/28/19 09:26; Admin Dose 75 MG; Start 01/25/19 at 12:30 Baclofen (Lioresal) 5 mg TID PO Last administered on 01/28/19 13:11; Admin Dose 5 MG; Start 01/27/19 at 21:00 JOSE LUIS BRAGA MD Jan 28, 2019 13:21
--- NOTE | 2019-01-28 14:15 | RADRPT ---
Echocardiogram Report Patient Name: GRACY FERREIRAPatient ID: [id number] : 1945 (73y 4m)Study Date: 01/25/2019 7:46:54 AM Gender: FAccession #: [id number] Tech: Carmen Irene [facility] Location: 4 Ref.Physician: CHANO TENORIO Height(Cm): BSA: Weight(Kg): Quality: AdequateAccount #: Procedures: Echocardiographic Report: Transthoracic echocardiogram with complete 2D, M-Mode, and doppler examination. Indications: Syncope. Measurements: 2D/M Mode Doppler Measurement Value Normal Range Measurement Value Normal Range LVIDd 2D 4.2 [ 3.8 - 5.2 ] cm AV Peak Jim 1.3 [ 100.0 - 170.0 ] cm/sec LVIDs 2D 2.6 [ 2.2 - 3.5 ] cm AV Peak PG 7.0 [ 2.0 - 9.0 ] mmHg LVPWd 2D 1.0 [ 0.6 - 0.9 ] cm LVOT Peak Jim 0.9 [ 70.0 - 110.0 ] cm/sec IVSd 2D 1.1 [ 0.6 - 0.9 ] cm LVOT Peak PG 3.0 [ 2.0 - 6.0 ] mmHg IVS/LVPW 2D 1.2 ratio MV E Peak Jim 0.8 [ 60.0 - 130.0 ] cm/sec AoR Diam 2D 2.2 [ 2.3 - 3.1 ] cm MV A Peak Jim 0.9 [ 100.0 - 120.0 ] cm/sec LA/Ao 2D 1 ratio MV E/A 0.8 [ 0.8 - 1.5 ] ratio LA Dimen 2D 2.9 [ 2.7 - 3.8 ] cm MV Decel Time 173 [ 104 - 258 ] msec Lat E` Jim 0.1 [ 10.0 - 15.0 ] cm/sec MV E/A 0.8 [ 0.8 - 1.5 ] ratio TR Peak Jim 2.6 [ 100.0 - 280.0 ] cm/sec TR Peak PG 26.0 mmHg RVSP 34.0 [ 10.0 - 36.0 ] mmHg RA Pressure 8.0 mmHg Findings: Left Ventricle: Normal left ventricular systolic function. Normal left ventricular cavity size. Mild concentric left ventricular hypertrophy. Ejection fraction is visually estimated at 60-65 %. Tissue Doppler/Mitral Doppler indices are consistent with impaired relaxation (Stage I diastolic dysfunction). Right Ventricle: Normal right ventricular size. Normal right ventricular systolic function. Left Atrium: The left atrium is normal in size. Right Atrium: The right atrium is normal in size. Mitral Valve: Mitral valve leaflets appear mildly thickened. Mild mitral annular calcification. Trace mitral regurgitation. Aortic Valve: Normal appearance of the aortic valve. No significant aortic stenosis or insufficiency. Tricuspid Valve: Normal appearance of the tricuspid valve. Estimated peak PA systolic pressure 34 mmHg. There is mild tricuspid regurgitation. Pulmonic Valve: Normal pulmonic valve appearance. Pericardium: Normal pericardium with no significant pericardial effusion. Aorta: Normal aortic root. IVC: Normal size and normal respiratory collapse consistent with normal right atrial pressure. Conclusions: Normal left ventricular systolic function. Normal left ventricular cavity size. Mild concentric left ventricular hypertrophy. Ejection fraction is visually estimated at 60-65 %. Tissue Doppler/Mitral Doppler indices are consistent with impaired relaxation (Stage I diastolic dysfunction). Mitral valve leaflets appear mildly thickened. Mild mitral annular calcification. Trace mitral regurgitation. Normal appearance of the aortic valve. No significant aortic stenosis or insufficiency. Normal appearance of the tricuspid valve. Estimated peak PA systolic pressure 34 mmHg. There is mild tricuspid regurgitation. Electronically Signed By: Christopher Sanz 2019-01-28 14:14:19 PDT
[2019-01-28] MEDS: ATORVASTATIN 80 MG TAB PO SCH (20:02)
[2019-01-29 02:00] VITALS: BP 121/61; PULSE 66; RESP 18
[2019-01-29 08:00] VITALS: BP 109/57; PULSE 66; RESP 18
[2019-01-29] MEDS ORDERED: ASPIRIN (EC) 81 MG TAB PO SCH (09:00)
[2019-01-29] MEDS: BACLOFEN 10 MG TAB PO SCH ×2 (09:08→12:53)
[2019-01-29] MEDS: CLOPIDOGREL 75 MG TAB PO SCH (09:08)
[2019-01-29] MEDS ORDERED: ASPI-1044 PO (11:47)
[2019-01-29] MEDS ORDERED: ATOR40TA68 PO (11:47)
--- NOTE | 2019-01-29 11:52 | DS ---
Date/Time of Note Date/Time of Note DATE: 01/29/19 TIME: 11:48 Discharge Summary Admission/Discharge Info Admit Date/Time Jan 27, 2019 at 14:26 Discharge Date/Time Discharge Diagnosis 1. Syncope, likely orthostatic, resolved 2. Carotid stenosis up to 50-69% at right ICA and 65% at right common carotid artery, not surgical, continue an lipitor and aspirin, follow up with vascular surgery outpatient 3. Normocytic anemia, mild, follow up with PCP 4. History of colon CA, follow-up with outpatient oncologist Consults ROCEDURE: US Carotids. CLINICAL INDICATION: bruit , syncope TECHNIQUE: Multiple sonographic of the carotid bifurcation region and vertebral arteries were obtained utilizing grimm scale, duplex and color-flow imaging. The images were reviewed on a PACS workstation. COMPARISON: No prior studies are available for comparison. FINDINGS: Evaluation of the right carotid bifurcation region reveals mild calcific ath erosclerotic disease. There is severe soft plaque. There is a 65% stenosis in the right common carotid artery. Evaluation of the left carotid bifurcation region reveals mild calcific atherosclerotic disease. There is antegrade flow within the vertebral arteries bilaterally. RIGHT CAROTID MEASUREMENTS: Common Carotid Artery 62.5 (cm/sec) Internal Carotid Artery - proximal 154 (cm/sec) Internal Carotid Artery - mid 121.1 (cm/sec) Internal Carotid Artery - distal 72.7 (cm/sec) Internal Carotid/Common Carotid 2.3 LEFT CAROTID MEASUREMENTS: Common Carotid Artery 96.9 (cm/sec) Internal Carotid Artery - proximal 87.8 (cm/sec) Internal Carotid Artery - mid 75 (cm/sec) Internal Carotid Artery - distal 65.8 (cm/sec) Internal Carotid/Common Carotid 0.94 RPTAT: AA IMPRESSION: 50-69% stenosis in the right ICA. - validated velocity measurements with angiographic measurements, velocity criteria are extrapolated from diameter data as defined by the Society of Radiologists in Ultrasound Consensus Conference Radiology 2003; 229;340-346. This study does indirectly reference the measurement of the distal ICA diameter as the denominator for stenosis measurement. Normal antegrade flow in the vertebral arteries bilaterally. Severe soft plaque in the right common carotid artery with a 65% stenosis. Further evaluation with a CT angiogram is recommended. .Ashish Nicole MD, Date Time Electronically viewed and signed by .Ashish Nicole MD, on 01/25/2019 10:53 Echocardiogram Report Patient Name: GRACY FERREIRA : 1945 (73y 4m) Study Date: 01/25/2019 7:46:54 AM Gender: F Tech: Carmen Irene [facility] Location: [facility] Ref.Physician: CHANO TENORIO Height(Cm): BSA: Weight(Kg): Quality: Adequate Account #: Procedures: Echocardiographic Report: Transthoracic echocardiogram with complete 2D, M-Mode, and doppler examination. Indications: Syncope. Measurements: 2D/M Mode Doppler Measurement Value Normal Range Measurement Value Normal Range LVIDd 2D 4.2 [ 3.8 - 5.2 ] cm AV Peak Jim 1.3 [ 100.0 - 170.0 ] cm/sec LVIDs 2D 2.6 [ 2.2 - 3.5 ] cm AV Peak PG 7.0 [ 2.0 - 9.0 ] mmHg LVPWd 2D 1.0 [ 0.6 - 0.9 ] cm LVOT Peak Jim 0.9 [ 70.0 - 110.0 ] cm/sec IVSd 2D 1.1 [ 0.6 - 0.9 ] cm LVOT Peak PG 3.0 [ 2.0 - 6.0 ] mmHg IVS/LVPW 2D 1.2 ratio MV E Peak Jim 0.8 [ 60.0 - 130.0 ] cm/sec AoR Diam 2D 2.2 [ 2.3 - 3.1 ] cm MV A Peak Jim 0.9 [ 100.0 - 120.0 ] cm/sec LA/Ao 2D 1 ratio MV E/A 0.8 [ 0.8 - 1.5 ] ratio LA Dimen 2D 2.9 [ 2.7 - 3.8 ] cm MV Decel Time 173 [ 104 - 258 ] msec Lat E` Jim 0.1 [ 10.0 - 15.0 ] cm/sec MV E/A 0.8 [ 0.8 - 1.5 ] ratio TR Peak Jim 2.6 [ 100.0 - 280.0 ] cm/sec TR Peak PG 26.0 mmHg RVSP 34.0 [ 10.0 - 3 6.0 ] mmHg RA Pressure 8.0 mmHg Findings: Left Ventricle: Normal left ventricular systolic function. Normal left ventricular cavity size. Mild concentric left ventricular hypertrophy. Ejection fraction is visually estimated at 60-65 %. Tissue Doppler/Mitral Doppler indices are consistent with impaired relaxation (Stage I diastolic dysfunction). Right Ventricle: Normal right ventricular size. Normal right ventricular systolic function. Left Atrium: The left atrium is normal in size. Right Atrium: The right atrium is normal in size. Mitral Valve: Mitral valve leaflets appear mildly thickened. Mild mitral annular calcification. Trace mitral regurgitation. Aortic Valve: Normal appearance of the aortic valve. No significant aortic stenosis or insufficiency. Tricuspid Valve: Normal appearance of the tricuspid valve. Estimated peak PA systolic pressure 34 mmHg. There is mild tricuspid regurgitation. Pulmonic Valve: Normal pulmonic valve appearance. Pericardium: Normal pericardium with no significant pericardial effusion. Aorta: Normal aortic root. IVC: Normal size and normal respiratory collapse consistent with normal right atrial pressure. Conclusions: Normal left ventricular systolic function. Normal left ventricular cavity size. Mild concentric left ventricular hypertrophy. Ejection fraction is visually estimated at 60-65 %. Tissue Doppler/Mitral Doppler indices are consistent with impaired relaxation (Stage I diastolic dysfunction). Mitral valve leaflets appear mildly thickened. Mild mitral annular calcification. Trace mitral regurgitation. Normal appearance of the aortic valve. No significant aortic stenosis or insufficiency. Normal appearance of the tricuspid valve. Estimated peak PA systolic pressure 34 mmHg. There is mild tricuspid regurgitation. Electronically Signed By: Christopher Sanz 2019-01-28 14:14:19 PDT Hospital Course The patient is a 73-year-old female, presenting to the ER because she felt dizzy and fainted today around 3 PM, fell on the curb side and landed on her right side of the abdomen. She denies any head injury, it was a witnessed by her caregiver, denies facial pain, neck pain, chest pain, dyspnea, abdominal pain, vomiting, dizzy, diarrhea, denies tongue bite, fecal/urinary incontinence. She smokes and drinks socially. Physical exam unremarkable. Echocardiography unremarkable. Carotid US revealed 65% at right common carotid artery that she will follow up with vascular surgery outpatient in 3 months to follow up with the stenosis. Patient will be on aspirin and lipitor for this. Home Meds Active Scripts Atorvastatin* (Atorvastatin*) 40 Mg Tablet, 40 MG PO QHS, #30 TAB Prov:JOSE LUIS BRAGA MD 01/29/19 Aspirin Delayed Release (Aspirin Delayed Release) 81 Mg Tablet., 81 MG PO DAILY for 30 Days Prov:JOSE LUIS BRAGA MD 01/29/19 Baclofen* (Baclofen*) 10 Mg Tablet, 5 MG PO TID PRN for muscle spasms for 7 Days, #20 TAB Prov:EARNEST PAYAN MD 01/27/19 Reported Medications [Vitamin B12] No Conflict Check, SQ Q30D 11/29/17 Pyridoxine Hcl* (Vitamin B-6*) Unknown Strength Tablet, 1 TAB PO DAILY, TAB 11/29/17 Discontinued Reported Medications Aspirin* (Aspirin* EC) 81 Mg Tablet., 81 MG PO NEEDED, TAB 11/29/17 Discontinued Scripts Ondansetron Hcl* (Zofran*) 4 Mg Tablet, 4 MG PO Q8H PRN for NAUSEA AND/OR VOMITING, #30 TAB Prov:CARLA OLIVEIRA MD 01/09/18 Naproxen* (Naprosyn*) 500 Mg Tablet, 500 MG PO BID PRN for PAIN AND/OR INFLAMMATION, #30 TAB Prov:CARLA OLIVEIRA MD 01/09/18 Docusate Sodium* (Colace*) 100 Mg Capsule, 100 MG PO BID, #30 CAP Prov:CARLA OLIVEIRA MD 01/09/18 Polyethylene Glycol* (Miralax*) 17 Gm Powd.pack, 17 GM PO DAILY, #7 Prov:CARLA OLIVEIRA MD 01/09/18 Ondansetron (Zofran Odt) 4 Mg Tab.rapdis, 4 MG PO Q6, #10 Prov:HELEN MONSON DO 11/30/17 Naproxen* (Naproxen*) 500 Mg Tablet, 500 MG PO BID PRN for PAIN, #20 TAB Prov:HELEN MONSON DO 11/30/17 Hydrocodone/Acetaminophen ([place] 5-325 Tablet) 1 Each Tablet, 1 EACH PO Q6 for PAIN, #14 TAB Prov:HELEN MONSON DO 11/30/17 Follow-up Plan 1. Follow up with your primary care physician in 1-2 weeks 2. On ultrasound of your neck arteries, you were found to have some narrowing which can be treated for now with aggressive medical treatment including Plavix and Lipitor. It is important to cut out foods high in fat and cholesterol to prevent further plaque formation. I recommend you discuss referral to a vascular surgeon for continued monitoring and evaluation for need of surgical intervention 3. Continue with warm compresses on neck while healing 4. If experiencing any concerning symptoms, please go to your nearest emergency department Primary Care Provider Not On Staff Doctor Pending Labs Laboratory Tests Test 01/29/19 05:52 Hemoglobin A1c 4.8 % (0-5.9) Triglycerides Level 83 mg/dl (0-149) Cholesterol Level 156 mg/dl (100-200) LDL Cholesterol, Calculated 66 mg/dl HDL Cholesterol 73 mg/dl (33-92) Cholesterol/HDL Ratio 2.1 RATIO JOSE LUIS BRAGA MD Jan 29, 2019 11:52
[2019-01-29 12:45] VITALS: BP_SYST 122; BP_SYST 124; BP_SYST 147; BP_DIAS 59; BP_DIAS 62; BP_DIAS 68; PULSE 64; PULSE 67; PULSE 85
[2019-01-29 14:00] VITALS: BP 130/79; PULSE 79; RESP 18
== END 2019-01-29 18:40 | disposition home or self-care (01) | DRG 312 ==
LOC: E/R 22:51 → 6WM 01-25 03:58 → OBSVTOIN 01-27 14:26 → PP2 01-28 00:49
PROVIDERS: ADMIT Family Medicine; ATTEND Internal Medicine
DX: I95.1 Orthostatic hypotension (principal); I65.21 Occlusion and stenosis of right carotid artery; D64.9 Anemia, unspecified; Z93.3 Colostomy status; F17.200 Nicotine dependence, unspecified, uncomplicated; Z86.718 Personal history of other venous thrombosis and embolism; Z85.038 Personal history of other malignant neoplasm of large intestine; Z79.82 Long term (current) use of aspirin
CPT/HCPCS: 36415; 70450; 71045; 72125; 80048; 80061; 80069; 82962; 83036; 83735; 84484; 85025; 93005; 93306; 93880; 93970; 97110; 97116; 97161; 97530; G0378

== ENCOUNTER 2019-03-03 22:37 | Emergency (ER) | payer OTHER ==
[~2019-03-03] VITALS: Ht 167.6 cm; Wt 65.0 kg
[~2019-03-03 22:37] MED LIST changes: +ASPI-1044 PO; -ASPI-817 PO; +ATOR40TA68 PO; +BACL10TA PO; -DOCU-144 PO; -HYDR-4011 PO; -NAPR-688 PO; -NAPR-985 PO; -ONDA4TAB11 PO; -ONDA4TAB8 PO; -POLY17PO6 PO
[2019-03-03 22:44] VITALS: Ht 167.6 cm; Wt 65.0 kg
--- NOTE | 2019-03-04 02:35 | ERD ---
ER Documentation Chief Complaint Chief Complaint L hand and arm numbness x 4 days HPI This is a 73-year-old female with a past medical history of hyperlipidemia who is presenting with waxing and waning mild to moderate left arm pain and numbness, radiating into her fourth and fifth digits at times. The patient does endorse a syncopal event several weeks ago where she did hit her head. The patient was evaluated previously and ultimately discharged in stable condition, but there were concerns of a possible concussion. The patient has followed up with her primary care physician since then and is actively being managed for this. The patient does endorse occasional forgetfulness. She denies any headache or vision changes. She does not endorse any neck pain or stiffness. She has not had any other focal deficits. She denies any other numbness or tingling. The patient has no weakness to any extremities. The patient denies feeling sick recently. The patient denies fever or chills. The patient denies lightheadedness or dizziness. The patient has had no chest pain or trouble breathing. The patient denies nausea or vomiting. The patient denies abdominal pain. The patient denies changes to bowel movements or urination. ROS All systems reviewed and are negative except as per history of present illness. Medications Home Meds Active Scripts Atorvastatin* (Atorvastatin*) 40 Mg Tablet, 40 MG PO QHS, #30 TAB Prov:JOSE LUIS BRAGA MD 01/29/19 Aspirin Delayed Release (Aspirin Delayed Release) 81 Mg Tablet.dr, 81 MG PO DAILY for 30 Days Prov:JOSE LUIS BRAGA MD 01/29/19 Baclofen* (Baclofen*) 10 Mg Tablet, 5 MG PO TID PRN for muscle spasms for 7 Days, #20 TAB Prov:EARNEST PAYAN MD 01/27/19 Reported Medications [Vitamin B12] No Conflict Check, SQ Q30D 11/29/17 Pyridoxine Hcl* (Vitamin B-6*) Unknown Strength Tablet, 1 TAB PO DAILY, TAB 11/29/17 Allergies Allergies: Coded Allergies: shellfish derived (Unverified Allergy, Severe, ANAPHLAXIS, 01/25/19) CAN'T HAVE GASTROGRAFIN FOR XRAYS OR SCANS Iodinated Contrast- Oral and IV Dye (Unverified Allergy, Unknown, 01/25/19) morphine (Unverified Allergy, Unknown, 01/25/19) PMhx/Soc History of Surgery: Yes (colostomy,vascular stents, implanted port,IVC filter,mesh in stomach L) Anesthesia Reaction: No Hx Neurological Disorder: No Hx Respiratory Disorders: No Hx Cardiac Disorders: No Hx Psychiatric Problems: No Hx Miscellaneous Medical Probl: Yes (NORMOCYTIC ANEMIA .H.OF COLON CANCER) Hx Alcohol Use: Yes Hx Substance Use: No Hx Tobacco Use: Yes Smoking Status: Current every day smoker FmHx Family History: No diabetes Physical Exam Vitals Vital Signs Date Temp Pulse Resp B/P (MAP) Pulse Ox O2 O2 Flow FiO2 Time Delivery Rate 03/03/19 97.6 74 16 150/69 98 22:44 (96) Physical Exam Const: No apparent distress, well-developed, well-nourished Head: Normocephalic, Atraumatic Eyes: Normal Conjunctiva. Extraocular movements intact. Pupils equal, round and reactive to light ENT: Normal External Ears, Nose and Mouth. Neck: Full range of motion. No meningismus. Resp: Clear to auscultation bilaterally, No wheezes, rales or rhonchi Cardio: Regular rate and rhythm. No murmurs, rubs or gallops Abd: Soft, non tender, non distended. Normal bowel sounds Skin: No petechiae or rashes Back: No midline tenderness. No CVA tenderness Ext: No cyanosis, or edema Neur: Awake and alert, oriented 4. Cranial nerves intact. No facial droop. Normal strength, objective sensation and coordination. No neglect. Subjective decreased sensation to the fourth and fifth digits of the left hand, but sensation still objectively intact. Psych: Normal Mood and Affect Procedures/MDM MDM Previous medical records, if available, were reviewed. The patient's symptoms are most consistent with a left ulnar radiculopathy. The patient has an objectively normal neurologic exam. I do not see any focal deficits. I have very low suspicion for cerebral ischemia or intracranial hemorrhage. The patient does report symptoms that are most consistent with a concussion that occurred several weeks ago. The patient is already been assessed for this and has a follow-up appointment scheduled with her primary care physician. Cervical stenosis or arthritis could also be related to her symptoms today. The patient does not have any current neck pain. There are no step-offs or deformities. She can move his neck in all directions without any pain. She is not altered or intoxicated. She does not have any distracting injuries. The patient's cervical spine was clinically cleared using the Nexus C- spine rule. I do not suspect emergent fracture or dislocation. The patient does not have any saddle anesthesia. He has not been incontinent of urine or stool. He has not had any retention of urine or stool. I have low suspicion for spinal cord injury. TREATMENT/DISPOSITION The patient was treated with Toradol in the emergency department. DISCHARGE Upon reevaluation of the patient, symptoms have improved. No emergent diagnoses were identified. At this time, I feel that the patient stable for discharge. The patient was instructed to follow-up with a primary care physician in 1-3 days. The patient will be given strict precautions with which to return to the emergency department. Prescriptions: Ibuprofen The patient's blood pressure was elevated at greater than 120/80 while in the emergency department. The patient was otherwise stable with no evidence of hypertensive urgency or emergency. The patient does not require admission for blood pressure control. I have discussed with the patient the risks of hypertension. I have instructed the patient to return to the ER for any new or worsening symptoms including chest pain, shortness of breath, headache, blurred vision, confusion, nausea, vomiting or LOC. I have advised the patient to follow up with the primary care physician for outpatient monitoring and treatment for h ypertension in 1-3 days. Disclaimer: Inadvertent spelling and grammatical errors are likely due to EHR/dictation software use and do not reflect on the overall quality of patient care. Note that the electronic time recorded on this note does not necessarily reflect the actual time of the patient encounter. Departure Diagnosis: Primary Impression: Ulnar nerve palsy of left upper extremity Additional Impressions: Concussion Encounter type: sequela Loss of consciousness presence/duration: with LOC of 30 min or less Qualified Codes: S06.0X1S - Concussion with loss of consciousness of 30 minutes or less, sequela Cervical radiculopathy Condition: Stable Patient Instructions: Concussion, Radiculopathy, Cervical Additional Instructions: Thank you for for coming to [facility] for your care today. Please ask your nurse or provider if you have questions about your care today and do not leave until all your questions have been answered. Please use any medications given as directed and follow-up with your doctor (or the doctor you were referred to) in the next 1-3 days. If you do not have a primary care doctor you may follow up at the [facility] or [facility] (listed below). You may also use motrin and tylenol as needed for fever and/or pain unless instructed otherwise by your provider or nurse. Indications for more urgent follow-up have been discussed, but you may return to the Emergency Department at ANY time for any worrisome or worsening symptoms. If you have abdominal pain, please know that no test or exam you received is perfect and you should follow up within 8 hours for continued pain. If you had any imaging studies today, such as an X-Ray or CT Scan, these studies will be reviewed later by a radiologist. You will be called if there are important findings that were not identified today, so make sure the contact information you provided at registration is correct. If you received any narcotic pain control medicine today, such as Vicodin, Morphine or Dilaudid, your coordination and judgment may be affected for a number of hours. Please do not drive or operate heavy machinery, and you may want someone to assist you at home. If you were given a prescription for narcotic medication, be aware that it is very addictive- use sparingly and only if necessary. PLEASE SEEK FURTHER EVALUATION AND MANAGEMENT AT YOUR DOCTORS OFFICE WITHIN THE NEXT 1-3 DAYS. IT IS YOUR RESPONSIBILITY TO MAKE AN APPOINTMENT FOR FOLOW-UP CARE. IF YOU HAVE A PRIMARY DOCTOR, PLEASE CALL THEIR OFFICE TO SCHEDULE AN APPOINTMENT FOR FOLLOW UP. IF YOU DO NOT HAVE A PRIMARY DOCTOR YOU CAN CALL OUR PHYSICIAN REFERRAL HOTLINE AT IF YOU CAN NOT AFFORD TO SEE A PHYSICIAN YOU CAN CHOSE FROM THE FOLLOWING [facility] CL[facility]ICS: [facility] [address] [facility]. [facility] [address] [facility]. [facility] [address] [facility] [address] [facility] [address] [facility] [facility]. [address] MD March 04, 2019 02:33
[2019-03-04] MEDS ORDERED: IBUP-1542 PO (02:36)
[2019-03-04] MEDS ORDERED: KETOROLAC 15 MG INJ IM STA (02:36)
[2019-03-04 03:35] VITALS: BP 148/89; PULSE 77; RESP 19
== END 2019-03-04 03:37 | disposition home or self-care (01) ==
LOC: FTE 22:37 → E/R 03-04 03:37
DX: M54.12 Radiculopathy, cervical region (principal); S06.0X1S Concussion with loss of consciousness of 30 minutes or less, sequela; F17.210 Nicotine dependence, cigarettes, uncomplicated; W01.198S Fall on same level from slipping, tripping and stumbling with subsequent striking against other object, sequela; Z79.82 Long term (current) use of aspirin; Z85.038 Personal history of other malignant neoplasm of large intestine
CPT/HCPCS: 96372; 99284; J1885; 93005